=== PATIENT | female | born 1995 | race Hispanic/Latino ===

== ENCOUNTER 2018-07-23 05:30 | Inpatient (IN) | payer OTHER ==
[2018-07-23] MEDS ORDERED: Lidocaine 1% (PF) 30 ML VIAL ONE (10:42)
[2018-07-23] MEDS: Lactated Ringer's 1,000 ML IV SCH (11:17)
[2018-07-23 11:28] VITALS: BMI 35.2
[2018-07-23] MEDS ORDERED: Promethazine HCl 25 MG/ML VIAL IM PRN (12:01)
[2018-07-23] MEDS ORDERED: HYDROcodone/Acetaminophen 5/325 mg Tablet PO PRN ×2 (12:01)
[2018-07-23] MEDS ORDERED: Carboprost 250 MCG/ML AMP IM PRN (12:01)
[2018-07-23] MEDS ORDERED: Misoprostol 200 MCG TAB PR PRN (12:01)
[2018-07-23] MEDS ORDERED: Acetaminophen 500 MG TAB PO PRN (12:01)
[2018-07-23] MEDS ORDERED: NS / Oxytocin 40 units/1000ml 1,000 ML IV PRN (12:01)
[2018-07-23] MEDS ORDERED: Diphenoxylate HCl/Atropine Tablet PO PRN ×2 (12:01)
[2018-07-23] MEDS ORDERED: Butorphanol Tartrate 1 MG/ML VIAL SLOW IVP PRN (12:01)
[2018-07-23] MEDS ORDERED: Ondansetron PF 4 MG/2 ML Vial IVP PRN (12:01)
[2018-07-23] MEDS ORDERED: Ibuprofen 800 MG TAB PO PRN (12:01)
[2018-07-23] MEDS ORDERED: Methylergonovine 0.2 MG/ML VIAL IM PRN (12:01)
[2018-07-23] MEDS ORDERED: Lidocaine 1% (PF) 30 ML VIAL SC PRN (12:01)
--- NOTE | 2018-07-23 12:09 | PDOC.LDHP ---
Labor and Delivery H&P Chief complaint: scheduled induction HPI: 22 Y/O AT 37 WEEKS AND 4 DAYS FOR TERM INDUCTION OF LABOR FOR OLIGOHYDRAMNIOS AT TERM. Current gestational age (weeks): 37 Due date: 08/09/18 Grav: 3 Para: 1 Abnormal US findings: Yes (LOW ALICIA) Current medications: pre- vitamins Previous surgical history: none Allergies/Adverse Reactions: Allergies Allergy/AdvReac Type Severity Reaction Status Date / Time No Known Allergies Allergy Unverified 07/23/18 11:19 Social history: none - Physical Exam Vital signs reviewed and normal: yes General: NAD, resting Heart: RRR Lungs: nonlabored breathing Abdomen: NTTP Extremeties: no edema FHT: category 1 - Vaginal Exam cm dilated: 1 Effacement: 0% Station: -3 - Plan Plan: admit to L&D, cervical ripening
[2018-07-23] MEDS ORDERED: NS w/ Oxytocin 10 units 500 ML IV SCH ×2 (12:15)
[2018-07-23] MEDS: Misoprostol 100 MCG TAB VAG SCH (12:25)
[2018-07-23 12:52] LABS: Hemoglobin 11.8 g/dL (12.0-16.0); Mean Corpuscular HGB CONC 35.9 g/dL (32.0-36.0); Mean Corpuscular Hemoglobin 31.4 pg (27.0-31.0); Mean Corpuscular Volume 87.6 fL (78.0-98.0); Mean Platelet Volume 13.6 fL (7.4-10.4); Platelet Count 90 thou/uL (130-400); RBC Distribution Width 12.2 % (11.5-14.5); Red Blood Cell (RBC) Count 3.74 mill/uL (4.20-5.40); White Blood Cell (WBC) Count 7.9 thou/uL (4.8-10.8)
[2018-07-23 13:13] LABS: Hep B Surf Ag Non-Reactive S/CO (NonReactive)
[2018-07-23 13:17] LABS: Syphilis Antibody Nonreactive (Nonreactive); Syphilis Antibody Index 0.02 S/CO (<1.00 Non-Reactive)
[2018-07-24] MEDS: Misoprostol 100 MCG TAB VAG SCH ×3 (05:22→14:57)
[2018-07-24] MEDS ORDERED: Lanolin Ointment 7 GM TUBE TOP PRN (11:23)
[2018-07-24] MEDS ORDERED: Promethazine HCl 25 MG/ML VIAL IM PRN (11:23)
[2018-07-24] MEDS ORDERED: diphenhydrAMINE 25 MG CAP PO PRN (11:23)
[2018-07-24] MEDS ORDERED: HYDROcodone/Acetaminophen 5/325 mg Tablet PO PRN ×2 (11:23)
[2018-07-24] MEDS ORDERED: Bisacodyl 10 MG SUPP PR PRN (11:23)
[2018-07-24] MEDS ORDERED: Milk Of Magnesia 30 ML UDCUP PO PRN (11:23)
[2018-07-24] MEDS ORDERED: Ondansetron PF 4 MG/2 ML Vial IVP PRN (11:23)
[2018-07-24] MEDS ORDERED: Benzocaine-Menthol 82.5 ML CAN TOP PRN (11:23)
[2018-07-24] MEDS ORDERED: Preparation H Ointment 28 GM TUBE PR PRN (11:23)
[2018-07-24] MEDS ORDERED: NS / Oxytocin 40 units/1000ml 1,000 ML IV SCH (11:30)
[2018-07-24] MEDS: Lactated Ringer's 1,000 ML IV SCH (14:57)
[2018-07-24] MEDS: Ibuprofen 800 MG TAB PO SCH ×2 (15:12→21:38)
[2018-07-24] MEDS: Ferrous Sulfate 325 MG TAB PO SCH (17:01)
[2018-07-24] MEDS: Docusate Calcium (SURFAK) 240 MG CAP PO SCH (21:38)
[2018-07-25 07:43] LABS: Hemoglobin 11.2 g/dL (12.0-16.0); Mean Corpuscular HGB CONC 33.4 g/dL (32.0-36.0); Mean Corpuscular Hemoglobin 29.5 pg (27.0-31.0); Mean Corpuscular Volume 88.2 fL (78.0-98.0); Mean Platelet Volume 13.1 fL (7.4-10.4); Platelet Count 87 thou/uL (130-400); RBC Distribution Width 12.1 % (11.5-14.5); Red Blood Cell (RBC) Count 3.78 mill/uL (4.20-5.40)
[2018-07-25 08:52] VITALS: BP 110/68; TEMP 98.1
[2018-07-25] MEDS: Ibuprofen 800 MG TAB PO SCH (08:57)
[2018-07-25] MEDS: Ferrous Sulfate 325 MG TAB PO SCH (08:58)
[2018-07-25] MEDS ORDERED: Adacel (T-DAP) 0.5 ML SYRINGE IM ONE (09:00)
[2018-07-25] MEDS ORDERED: Measles/Mumps/Rubella 10 MCG/0.5 ML VIAL SC ONE (09:00)
[2018-07-25] MEDS ORDERED: Varicella virus, LIVE 0.5 ML VIAL SC ONE (09:00)
[2018-07-25] MEDS: Docusate Calcium (SURFAK) 240 MG CAP PO SCH (09:27)
--- NOTE | 2018-07-25 13:19 | PDOC.PP ---
Post Progress Note Post Day #: 1 PO intake tolerated: yes Flatus: yes Ambulation: yes Vital Signs (12 hours) Temp Pulse Resp BP Pulse Ox 07/25/18 08:00 98.1 F 67 20 110/68 96 Weight Weight 205 lb - Physical Examination General: NAD Cardiovascular: no m/r/g, RRR Respiratory: clear to auscultation bilaterally, non-labored breathing Abdominal: + bowel sounds, lochia, no distention Extremities: negative homans (B) Neurological: no gross focal deficits (DC to home today. OTC Ibuprofen only as requested.) Result Diagrams: 07/25/18 07:02 Additional Labs: Post Labs Blood Type O POSITIVE 07/23/18 13:01 Hep Bs Antigen Non-Reactive S/CO (NonReactive) 07/23/18 12:19
--- NOTE | 2018-07-26 00:25 | DN ---
DATE OF PROCEDURE: 07/24/2018 PREOPERATIVE DIAGNOSIS: Intrauterine at 37 weeks and 5 days with a term medical induction of labor for oligohydramnios. POSTOPERATIVE DIAGNOSIS: Intrauterine at 37 weeks and 5 days with a term medical induction of labor for oligohydramnios. PROCEDURE: Spontaneous vaginal delivery over intact perineum without epidural. FINDINGS: Viable female infant, weighing 2742 g or 6 pounds 1 ounce. Apgars of eight and nine. QUANTITATIVE BLOOD LOSS: 140 mL. COMPLICATIONS: None. PROCEDURE IN DETAIL: The patient presented to [facility] where she was admitted to the labor and delivery service. The patient underwent a normal and uneventful labor with normal cervical dilatation until she was found to be completely dilated. She was then allowed to push and was able to bring the baby down and delivered the baby in a vertex presentation without difficulties. Once the head delivered in occiput anterior position, the shoulders followed spontaneously along with the rest of the baby's body. Once out the baby's mouth and nose were bulb suctioned. The cord was clamped and cut and baby was handed to waiting attendants. Cord blood was collected. Gentle fundal massage was performed and the placenta delivered intact without problems. Hemostasis was assured. Quantitative blood loss was calculated. Inspection of the cervix, vaginal vault, and perineum did not reveal any lacerations needing suturing. Once again, hemostasis was within normal limits and the patient was allowed to recover in the labor and delivery room. Baby went to nursery. Job ID: [id number]
== END 2018-07-25 17:55 | disposition home or self-care (01) | DRG 807 ==
LOC: L&D 10:12 → 3SW 07-24 14:34
PROVIDERS: ADMIT Obstetrics & Gynecology; ATTEND Obstetrics & Gynecology
PROC: 10E0XZZ Delivery of Products of Conception, External Approach (ICD-10-PCS; principal; 2018-07-23)
PROC: 10907ZC Drainage of Amniotic Fluid, Therapeutic from Products of Conception, Via Natural or Artificial Opening (ICD-10-PCS; 2018-07-23)
PROC: 3E0P7VZ Introduction of Hormone into Female Reproductive, Via Natural or Artificial Opening (ICD-10-PCS; 2018-07-23)
PROC: 3E033VJ Introduction of Other Hormone into Peripheral Vein, Percutaneous Approach (ICD-10-PCS; 2018-07-23)
DX: O41.03X0 Oligohydramnios, third trimester, not applicable or unspecified (principal); Z37.0 Single live birth; Z3A.37 37 weeks gestation of pregnancy
CPT/HCPCS: 36415; 85027; 86780; 86850; 86900; 86901; 87340; J2001; J2590

== ENCOUNTER 2019-12-03 05:30 | Inpatient (IN) | payer BC, OTHER ==
[2019-12-03] MEDS: Lactated Ringer's 1,000 ML IV SCH ×2 (07:20→21:06)
[2019-12-03] MEDS ORDERED: Acetaminophen 500 MG TAB PO PRN (07:28)
[2019-12-03] MEDS ORDERED: Ondansetron PF 4 MG/2 ML Vial IVP PRN ×2 (07:28→22:46)
[2019-12-03] MEDS ORDERED: Methylergonovine 0.2 MG/ML VIAL IM PRN ×2 (07:28→22:46)
[2019-12-03] MEDS ORDERED: Promethazine HCl 25 MG/ML VIAL IM PRN ×2 (07:28→22:46)
[2019-12-03] MEDS ORDERED: Docusate 100 MG CAP PO PRN (07:28)
[2019-12-03] MEDS ORDERED: Lidocaine 1% (PF) 30 ML VIAL SC PRN (07:28)
[2019-12-03] MEDS ORDERED: Diphenoxylate HCl/Atropine Tablet PO PRN ×2 (07:28)
[2019-12-03] MEDS ORDERED: Ibuprofen 800 MG TAB PO PRN (07:28)
[2019-12-03] MEDS ORDERED: Misoprostol 200 MCG TAB PR PRN (07:28)
[2019-12-03] MEDS ORDERED: Butorphanol Tartrate 1 MG/ML VIAL SLOW IVP PRN (07:28)
[2019-12-03] MEDS ORDERED: hydrALAZINE 20 MG/ML VIAL SLOW IVP PRN ×2 (07:28→22:46)
[2019-12-03] MEDS ORDERED: Carboprost 250 MCG/ML AMP IM PRN (07:28)
[2019-12-03] MEDS ORDERED: HYDROcodone/Acetaminophen 5/325 mg Tablet PO PRN ×4 (07:28→22:46)
[2019-12-03] MEDS: Penicillin G 2.5 MILL.units 2.5 MILL.UNITS in Premix Bag 1 BAG IVPB SCH ×4 (07:30→21:06)
[2019-12-03] MEDS ORDERED: NS w/ Oxytocin 10 units 500 ML IV SCH ×2 (07:30)
[2019-12-03] MEDS ORDERED: Penicillin G Potassium 5 MILL.UNITS in Sodium Chloride 0.9% 100 ML IVPB SCH (07:30)
[2019-12-03 07:33] VITALS: BMI 37.9
[2019-12-03] MEDS ORDERED: Penicillin G Potassium 5 MILL.UNITS VIAL ONE (07:37)
[2019-12-03 08:27] LABS: Hemoglobin 11.1 g/dL (12.0-16.0); Mean Corpuscular Hemoglobin 30.2 pg (27.0-31.0); Mean Corpuscular Volume 86.1 fL (78.0-98.0); Mean Platelet Volume 13.5 fL (7.4-10.4); Platelet Count 82 thou/uL (130-400); RBC Distribution Width 12.1 % (11.5-14.5); Red Blood Cell (RBC) Count 3.69 mill/uL (4.20-5.40); White Blood Cell (WBC) Count 7.7 thou/uL (4.8-10.8)
[2019-12-03 08:32] LABS: HBSAg Index 0.17 S/CO (0-0.99); Hep B Surf Ag Non-Reactive S/CO (NonReactive); Syphilis Antibody Nonreactive (Nonreactive); Syphilis Antibody Index 0.02 S/CO (<1.00 Non-Reactive)
--- NOTE | 2019-12-03 18:47 | PDOC.LDHP ---
Labor and Delivery H&P Chief complaint: scheduled induction HPI: 24 y/o at 39 weeks for elective induction of labor. GBS POS. Current gestational age (weeks): 39 Grav: 2 Para: 1 Current complications: none Abnormal US findings: No Current medications: pre- vitamins Allergies/Adverse Reactions: Allergies Allergy/AdvReac Type Severity Reaction Status Date / Time No Known Allergies Allergy Verified 12/03/19 07:26 Social history: none - Physical Exam Vital signs reviewed and normal: yes General: NAD, resting, breathing through contractions Heart: RRR Lungs: CTAB Abdomen: NTTP Extremeties: no edema FHT: category 1 - Assessment L&D Assessment: elective induction at term - Plan Plan: admit to L&D, cervical ripening
[2019-12-03] MEDS ORDERED: Carboprost 250 MCG/ML AMP ONE (18:55)
[2019-12-03] MEDS ORDERED: Misoprostol 200 MCG TAB ONE (18:55)
[2019-12-03] MEDS ORDERED: NS / Oxytocin 40 units/1000ml 1,000 ML ONE (18:55)
[2019-12-03] MEDS ORDERED: Methylergonovine 0.2 MG/ML VIAL ONE (18:55)
[2019-12-03] MEDS: NS / Oxytocin 40 units/1000ml 1,000 ML IV PRN ×2 (19:29→20:55)
[2019-12-03] MEDS ORDERED: Preparation H Ointment 28 GM TUBE PR PRN (22:46)
[2019-12-03] MEDS ORDERED: Lanolin Ointment 7 GM TUBE TOP PRN (22:46)
[2019-12-03] MEDS ORDERED: Misoprostol 200 MCG TAB VAG PRN (22:46)
[2019-12-03] MEDS ORDERED: NS / Oxytocin 40 units/1000ml 1,000 ML IV SCH (22:46)
[2019-12-03] MEDS ORDERED: diphenhydrAMINE 25 MG CAP PO PRN (22:46)
[2019-12-03] MEDS ORDERED: Milk Of Magnesia 30 ML UDCUP PO PRN (22:46)
[2019-12-03] MEDS ORDERED: Zolpidem Tartrate 5 MG TAB PO PRN (22:46)
[2019-12-03] MEDS ORDERED: Benzocaine-Menthol 82.5 ML CAN TOP PRN (22:46)
[2019-12-03] MEDS ORDERED: Bisacodyl 10 MG SUPP PR PRN (22:46)
[2019-12-03] MEDS ORDERED: Ibuprofen 800 MG TAB PO SCH (23:00)
[2019-12-03] MEDS ORDERED: Docusate Calcium (SURFAK) 240 MG CAP PO SCH (23:00)
[2019-12-04 06:38] LABS: Hemoglobin 11.6 g/dL (12.0-16.0); Mean Corpuscular HGB CONC 32.4 g/dL (32.0-36.0); Mean Corpuscular Hemoglobin 28.1 pg (27.0-31.0); Mean Corpuscular Volume 86.6 fL (78.0-98.0); Mean Platelet Volume 14.6 fL (7.4-10.4); Platelet Count 82 thou/uL (130-400); RBC Distribution Width 12.2 % (11.5-14.5); Red Blood Cell (RBC) Count 4.13 mill/uL (4.20-5.40); White Blood Cell (WBC) Count 11.8 thou/uL (4.8-10.8)
[2019-12-04] MEDS ORDERED: Adacel (T-DAP) 0.5 ML SYRINGE IM ONE (09:00)
[2019-12-04] MEDS ORDERED: Measles/Mumps/Rubella 10 MCG/0.5 ML VIAL SC ONE (09:00)
[2019-12-04] MEDS ORDERED: Varicella virus, LIVE 0.5 ML VIAL SC ONE (09:00)
[2019-12-04] MEDS: Ibuprofen 800 MG TAB PO SCH ×2 (09:04→14:00)
[2019-12-04] MEDS: Ferrous Sulfate 325 MG TAB PO SCH ×2 (09:04→15:42)
[2019-12-04] MEDS: Prenatal Vitamin 1 TAB PO SCH (10:16)
[2019-12-04] MEDS: Docusate Calcium (SURFAK) 240 MG CAP PO SCH (10:16)
--- NOTE | 2019-12-04 14:58 | PDOC.PP ---
Post Progress Note Post Day #: 1 PO intake tolerated: yes Flatus: yes Ambulation: yes Vital Signs (12 hours) Temp Pulse Resp BP Pulse Ox 12/04/19 11:33 98.1 F 72 20 118/75 12/04/19 07:48 98.2 F 79 20 86/53 L 98 Weight Weight 228 lb - Physical Examination General: NAD Cardiovascular: no m/r/g, RRR Respiratory: clear to auscultation bilaterally, non-labored breathing Abdominal: + bowel sounds, lochia, no distention Extremities: negative homans (B) Neurological: no gross focal deficits Psychiatric: A&Ox3, normal affect Result Diagrams: 12/04/19 06:19 Additional Labs: Post Labs Hep Bs Antigen Non-Reactive S/CO (NonReactive) 12/03/19 07:39 Blood Type O POSITIVE 12/03/19 07:39
[2019-12-05] MEDS: Docusate Calcium (SURFAK) 240 MG CAP PO SCH ×2 (07:51→08:36)
[2019-12-05] MEDS: Ibuprofen 800 MG TAB PO SCH (07:51)
[2019-12-05] MEDS: Ferrous Sulfate 325 MG TAB PO SCH (08:31)
[2019-12-05 08:36] VITALS: BP 119/77; TEMP 97.6
[2019-12-05] MEDS: Prenatal Vitamin 1 TAB PO SCH (08:36)
== END 2019-12-05 13:20 | disposition home or self-care (01) | DRG 807 ==
LOC: L&D 06:31 → 3SW 12-04 00:05
PROVIDERS: ADMIT Obstetrics & Gynecology; ATTEND Obstetrics & Gynecology
PROC: 10E0XZZ Delivery of Products of Conception, External Approach (ICD-10-PCS; principal; 2019-12-03)
PROC: 3E033VJ Introduction of Other Hormone into Peripheral Vein, Percutaneous Approach (ICD-10-PCS; 2019-12-03)
PROC: 10907ZC Drainage of Amniotic Fluid, Therapeutic from Products of Conception, Via Natural or Artificial Opening (ICD-10-PCS; 2019-12-03)
DX: O99.824 Streptococcus B carrier state complicating childbirth (principal); Z37.0 Single live birth; Z3A.39 39 weeks gestation of pregnancy
CPT/HCPCS: 36415; 85027; 86780; 86850; 86900; 86901; 87340; J2210; J2540; J2590; J3490